=== PATIENT | male | born 1945 | race Caucasian/White ===

== ENCOUNTER → 2016-11-22 | Outpatient (CLI) | payer OTHER ==
[~2016-11-22] MED LIST: ALLOPURINOL 10100 M1 PO; LISINOPRIL20 MG PO; METFORMIN HCL500 MG PO; PANTOPRAZOLE SO40 M1 PO; ZOCOR20 MG PO
--- NOTE | ~2016-11-22 | EKG ---
[address] [employer] [place] [address] ELECTROCARDIOGRAM REPORT Name: ASHA KOCH Room #: [facility]#: [id number] Admission: 11/22/16 Attend Phys: Primo Angulo MD Discharge: Date of : 47 Report #: [id number] THIS REPORT FOR: //name// [facility] [place] [place] Test Date: 2016-11-22 Test Time: 07:14:59 Pat Name: ASHA KOCH Department: Room: Gender: M Bus Mechanic: DAVID : 1945 Requested By: Primo Angulo Order Number: [id number] MD: Bhavesh Pedroza Measurements Intervals [place] Rate: 84 P: 52 NM: 268 QRS: -19 QRSD: 89 T: 25 QT: 371 QTc: 439 Interpretive Statements Sinus rhythm Prolonged NM interval Inferior infarct, old No previous ECG available for comparison Electronically Signed On 11-22-2016 9:01:19 CDT by Bhavesh Pedroza [email or web address] <ELECTRONICALLY SIGNED> By: Bhavesh Pedroza MD, [facility] 11/22/16900 3 3 Bhavesh Pedroza MD, FACC /EPI
== END | disposition home or self-care (01) ==
LOC: LITH 06:24
DX: N20.0 Calculus of kidney (principal)